=== PATIENT | male | born 1965 | race Caucasian/White ===

== ENCOUNTER 2016-03-21 18:29 | Inpatient (IN) ==
[2016-03-21] MEDS ORDERED: Naloxone 0.4 MG/ML INJ IVP PRN (21:22)
[2016-03-21] MEDS ORDERED: NON-FORMULARY MEDICATION 1 EACH EACH (Insulin Glargine [Lantus] 90 UNIT) SQ SCH (21:45)
[2016-03-21] MEDS ORDERED: INSULIN ASPART SQ SCH (21:45)
--- NOTE | 2016-03-21 21:48 | Internal Med History&Physical ---
Date of Encounter: 03/21/16 Time of Encounter: 21:43 Assessment and Plan (1) Cellulitis of left lower leg Current visit: Yes Status: Acute Patient has cellulitis, warmth and redness of the left lower extremity likely from open lesion in his foot and being diabetic and having peripheral neuropathy. He was started on Zosyn (piperacillin/tazobactam) in the ER in [facility] and we will continue every 6 hours. We will first start with a nice hot shower to cleanse his skin. We will float his heels to avoid heel breakdown. Wound clinic will be consulted. LacHytrin for his dry skin as per Dr. Lang recommendations (2) Cellulitis of left foot Current visit: Yes Status: Acute As above. Right now I do not think there is osteomyelitis (3) Diabetes mellitus due to underlying condition with diabetic neuropathic arthropathy Current visit: Yes Status: Acute Will continue his baseline long and short acting insulins and follow the blood sugars. Lab work that was not done as recommended by Dr. Acuna will be done during this hospital stay. Qualifiers: Diabetes mellitus mcc insulin use: with manager long term care use Qualified Code( s): E08.610 - Diabetes mellitus due to underlying condition with diabetic neuropathic arthropathy; Z79.4 - intermodal customer service (current) use of insulin (4) Morbid obesity with BMI of 50.0-59.9, adult Current visit: Yes Status: Acute Because of his morbid obesity it is hard to keep him clean and mobile. He is at risk for DVT and will have Lovenox for DVT prophylaxis. (5) Hypertension Current visit: Yes Status: Chronic He has a history of hypertension, in the ER he was hypotensive. He has improved with IV fluids, will follow. Qualifiers: Hypertension type: essential hypertension Qualified Code(s): I10 - Essential (primary) hypertension (6) Hyperlipidemia Current visit: Yes Status: Chronic We will check his lab work while hospitalized. Qualifiers: Hyperlipidemia type: unspecified Qualified Code(s): E78.5 - Hyperlipidemia , unspecified (7) Asthma Current visit: Yes Status: Acute He has a history of asthma remotely. He said he had a flareup and required a nebulizer treatment in the ER. We will have PRN albuterol nebulizer treatment. Qualifiers: Asthma severity: mild intermittent Asthma complication type: with acute exacerbation Qualified Code(s): J45.21 - Mild intermittent asthma with (acute ) exacerbation (8) DVT prophylaxis Current visit: Yes Status: Acute Because of his obesity, bed rest to elevate his feet, and sedentary lifestyle he is at risk for DVT. Lovenox will be started. Internal Medicine - H&P: HPI Chief complaint: My foot hurts and I have an infection Admitted From: Emergency Dept Plans for Post Hospital Care: Home History of present illness: Mr. Lopez is a 50 year old male with known history of insulin-dependent diabetes, hypertension, hyperlipidemia, peripheral neuropathy and multiple foot problems. He was seen in the office by Dr. Acuna about 10 days ago and he states things were stable at that time. He did not get his blood work done though. He said his feet were okay then. However, he said he has had a "cold" and has had sore throat and chills and perspiring especially at night time. Sometimes he has been wheezing. He said he has been without his hot water heater for a couple of weeks. He had to wear his dress socks for 3 days in a row and did not realize that he was having troubles with his foot. Then he started having throbbing in his left foot. 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 He said they had to cut socks off of his foot and made an indentation because it was so tight. He was evaluated in the emergency room in [facility], blood cultures obtaining, white blood cell count was 21,000. He was given a breathing treatment because he was wheezing. Give him a dose of Zosyn. With the type of insurance that he has, he has no coverage at the [facility] and so they requested transfer to our facility. Bed management said we could admit him. He denies a cardiac symptoms but was told that he should have an echocardiogram by the director strategic account management. He was told in the past he had asthma and had an inhaler 12 or 15 years ago, not requiring anything recently but had a breathing treatment at the ER because of wheezing. He has been seen by Dr. Lang in [place] for his lesions on his feet, callous removals, etc. Past Med Surg Social Fam HX - Past Medical History Medical history: asthma (Was treated 15 or [address] Wright with an inhaler that has had none since.), diabetes, hyperlipidemia, hypertension, other (Multiple problems with his feet, ulcerations, calluses) Psychiatric history: no psych history - Past Surgical History Surgical History: cataract (Cataract surgeries), orthopedic, other (Bilateral carpal tunnel), vasectomy, other (Cystoscopy) - Social History Smoking Status: Current some day smoker Smokeless Tobacco Status: Yes Alcohol use: none Drug use: none - Family History Brother Living Status: Still Living Hx Family Endocrine Disorder: Yes (2 brothers with diabetes) Father Living Status: Still Living Hx Family Genitourinary Disorders: Yes (Small kidneys and kidney failure problems) Mother Living Status: Cause of : Some type of cancer when the patient was 3 or 4 years old Internal Medicine - H&P: Meds Furosemide [Lasix] 80 mg PO DAILY 04/19/15 [History] GlipiZIDE [Glucotrol] 5 mg PO DAILY 04/19/15 [History] Insulin ASPART [NovoLOG] 0 unit SQ TIDWM 04/19/15 [History] Insulin Glargine [Lantus] 90 unit SQ BID 04/19/15 [History] Lisinopril-HCTZ 20-12.5 [Prinzide 20-12.5] 1 each PO DAILY 04/19/15 [History] Ammonium Lactate [Ammonium Lactate] BID 03/21/16 [History] Allergies codeine Adverse Reaction (Mild, Verified 03/21/16 22:33) Constipation - Constitutional Constitutional: chills, excessive sweating, fever(s), night sweats - EENT Eyes: no change in vision Ears: no decreased hearing, no ear discharge, no ear pain Nose, mouth and throat: sore throat, no nasal congestion - Cardiovascular Cardiovascular ROS IM: no chest pain, no claudication, no irregular heart rhythm - Respiratory Respiratory: cough, wheezing (Was treated for wheezing in the emergency room.), no chest congestion - Gastrointestinal Gastrointestinal: no abdominal pain, no constipation, no diarrhea, no melena, no nausea, no vomiting - Genitourinary Genitourinary ROS male: no difficulty urinating, no hematuria - Musculoskeletal Musculoskeletal ROS IM: no joint swelling, no muscle weakness - Integumentary Additional comments: Crack in the skin on the bottom of his left foot and superficial abrasion type exfoliation on the left calf area. - Neurological Neurological ROS: no dizziness, no focal weakness, no weakness - Psychiatric Psychiatric: no behavioral changes, no depression - Constitutional Vitals: Temp Pulse Resp BP Pulse Ox 97.7 F 110 22 98/47 96 03/21/16 20:55 03/21/16 20:55 03/21/16 20:55 03/21/16 20:55 03/21/16 20:55 General appearance: Present: mild distress, A&O X 3, morbidly obese Exam: Very dirty and odorous - Eye Eye exam: Present: EOMI, normal appearance - ENT ENT exam: Present: mucous membranes moist, TM's normal bilaterally Additional comments: Poor dentition, some missing teeth - Neck Neck exam general surgery: Absent: lymphadenopathy, tenderness, nuchal rigidity - Respiratory Respiratory exam: Present: CTAB. Absent: respiratory distress, rhonchi, wheezes - Cardiovascular Cardiovascular exam: Present: RRR, +S1, +S2, systolic murmur (2/6 systolic murmur at the outlet) - GI/Abdominal GI/Abdominal exam: Present: no peritoneal signs. Absent: pulsatile mass, rebound, tenderness Additional comments: Morbidly obese. No obvious liver or spleen enlargement, but would be almost impossible find most lesions because of his obesity. - Extremities Exam Additional comments: Lower extremities are very large bilaterally. (Tar surface shows 4 cm "crack" transfers across the distal 1st metatarsal. There is no exudate. Healing previously calloused area on the medial proximal hallux. Posterior calf shows a transverse band measuring approximately 3 cm x 10 cm of excoriated raw skin. No secondary infection or drainage noted. The skin is peeling. Right foot shows callous at the right medial hallux. No open lesion noted. Both bilateral lower extremity show hyperpigmentation, thick leather like skin with bubbled type appearance on the anterior shins. The left lower extremity is hot and tender and erythematous particularly in the lower two thirds. There are no linear streaks above that. No thigh tenderness. No inguinal lymphadenopathy noted. Both feet are anesthetic to touch sensation. Capillary refill appears to be intact. - Neurological Exam Neurological exam: Present: alert, CN II-XII intact, oriented X3 Additional comments: Both feet are anesthetic to light touch. - Psychiatric Psychiatric exam: Present: normal affect, normal mood - Skin Additional comments: see description in lower extremities Internal Med - H&P Results - Labs Labs: Labs obtained at [facility] ER : White blood cell count is 21,800, hemoglobin 13.4 with 82% segmented cells with the left shift and 7 bands. sodium 134 potassium 4.0 by carb 32 glucose 238 BUN 19 credit 1.15 alkaline phosphatase 180 and rest of liver functions are normal.
[2016-03-21] MEDS ORDERED: Insulin DETEMIR 100 UNIT/ML per UNIT SQ ONE (22:15)
[2016-03-22] MEDS: *HR* HYDROcodone/Acet 5/325 mg TABLET PO PRN ×5 (00:08→21:55)
[2016-03-22] MEDS: 0.9 % Sodium Chloride 1,000 ML IVC SCH ×3 (00:13→13:26)
[2016-03-22] MEDS: Piperacillin/Tazobactam 3.375 GM in D5% in Water (Mini-Bag+) 100 ML IVPB SCH ×3 (00:14→14:12)
[2016-03-22] MEDS: Albuterol 2.5 MG/3 ML NEBULIZER IH PRN ×4 (00:27→21:24)
[2016-03-22] MEDS: Ammonium Lactate 30 APPL/225 GM BOTTLE TP SCH ×3 (00:30→21:25)
[2016-03-22] MEDS ORDERED: *HR* Dextrose 50 % in Water (Syg) 50 ML SYRINGE IVP PRN (04:16)
[2016-03-22] MEDS ORDERED: D5% in Water 1,000 ML IV PRN (04:16)
[2016-03-22] MEDS ORDERED: Dextrose Gel 15 GM PO PRN ×2 (04:16)
[2016-03-22] MEDS: *HR* Enoxaparin 40 MG/0.4 ML SYRINGE SQ SCH (05:27)
[2016-03-22 05:37] LABS: Basophils % 0.2 %; Eosinophils # 0.1 K/mcL (0.0-0.6); Eosinophils % 0.2 %; Hematocrit 36.7 % (37.5-50.1); Hemoglobin 12.2 g/dL (12.9-16.9); Immature Granulocytes % 1.1 % (0-4); Lymphocytes # 0.9 K/mcL (0.6-4.6); Mean Corpuscular HGB Conc 33.2 g/dL (31.6-35.5); Mean Corpuscular Hemoglobin 29.3 pg (28.0-33.3); Mean Platelet Volume 10.4 fL (9.4-12.4); Monocytes # 1.9 K/mcL (0.0-1.3); Monocytes % 8.2 %; Neutrophils # 19.6 K/mcL (1.6-8.9); Platelet Count 271 K/mcL (140-400); Red Blood Count 4.17 M/mcL (4.19-5.50); Red Cell Distribution Width 13.9 % (11.5-14.5); Segmented Neutrophils % 86.3 %
[2016-03-22 05:39] LABS: Basophils # 0.1 K/mcL (0.0-0.2)
[2016-03-22 05:48] LABS: BUN/Creatinine Ratio 18 (6-26); Blood Urea Nitrogen 21 mg/dL (8-26); Calcium 8.6 mg/dL (8.6-10.8); Carbon Dioxide 26 mEq/L (19-29); Chloride 95 mEq/L (98-109); Chol/HDL Ratio 4.4 (0-4.9); Glucose 235 mg/dL (70-99); Osmolality,Calculated 287 (280-300); Potassium 4.1 mEq/L (3.5-4.5); Sodium 133 mEq/L (136-145); eGFR For African Americans > 60 (> 60); eGFR For Non-African Americans > 60 (> 60)
[2016-03-22] MEDS: Insulin LISPRO 300 UNITS/3 ML VIAL SQ SCH ×4 (10:18→21:24)
[2016-03-22] MEDS: Lisinopril-HCTZ 20-12.5mg TABLET PO SCH (10:20)
[2016-03-22] MEDS: Furosemide 40 MG TABLET PO SCH (10:20)
[2016-03-22] MEDS: *HR* GlipiZIDE 5 MG TABLET PO SCH (10:20)
[2016-03-22] MEDS: Insulin DETEMIR 100 UNIT/ML X5UNITS SQ SCH ×2 (10:34→21:24)
--- NOTE | 2016-03-22 15:20 | Internal Med Progress Note ---
Date of Encounter: 03/22/16 Time of Encounter: 15:15 - Assessment and plan (1) Diabetic infection of left foot Current Visit: Yes Status: Acute Assessment and plan: Overnight since he had a shower he has an obvious infection in the plantar surface of the left foot as discussed above. It is currently able to drain. Likely this abscess needs to be unroofed surgically. Currently there is drainage and a culture was obtained. I try to be in touch with Dr. Lang this weekend to formulate game plan regarding more aggressive intervention. Likely this is going to need major debridement by him and I want to make arrangements to facilitate him seeing him, but likely not available over the weekend. We will continue with the Zosyn. Blood cultures from [facility] ER are pending. White blood cell count is still 22,000, but he has been on antibiotics less than 24 hours. There is no fever. No advancement of the superficial cellulitis on the left lower extremity. At this point he will remain at bed rest. (2) Cellulitis of left lower leg Current Visit: Yes Status: Acute Assessment and plan: The cellulitis area of the left lower extremity is stable, no further advancement proximately. He continues with the Zosyn. (3) Cellulitis of left foot Current Visit: Yes Status: Acute (4) Diabetes mellitus due to underlying condition with diabetic neuropathic arthropathy Current Visit: Yes Status: Acute Assessment and plan: Minimal elevation of his blood sugars, we are continuing his chronic medication and coverage. Qualifiers: Diabetes mellitus watermelon harvesting supervisor insulin use: with watermelon harvesting supervisor use Qualified Code( s): E08.610 - Diabetes mellitus due to underlying condition with diabetic neuropathic arthropathy; Z79.4 - extermination supervisor (current) use of insulin (5) Morbid obesity with BMI of 50.0-59.9, adult Current Visit: Yes Status: Chronic (6) Hypertension Current Visit: Yes Status: Chronic Assessment and plan: His blood pressure is under adequate control now. At the ER at [facility] and early here he had some hypotension in the 90s systolic. Now in the 110 to 120 range. Will follow. Continue current meds. Qualifiers: Hypertension type: essential hypertension Qualified Code(s): I10 - Essential (primary) hypertension (7) Hyperlipidemia Current Visit: Yes Status: Chronic Qualifiers: Hyperlipidemia type: unspecified Qualified Code(s): E78.5 - Hyperlipidemia , unspecified (8) Asthma Current Visit: Yes Status: Acute Assessment and plan: He will be receiving nebulizer treatments PRN. We will try to avoid adding steroids because of his acute infection. Qualifiers: Asthma severity: mild intermittent Asthma complication type: with acute exacerbation Qualified Code(s): J45.21 - Mild intermittent asthma with (acute ) exacerbation (9) Skin ulcer of buttock, limited to breakdown of skin Current Visit: Yes Status: Acute Assessment and plan: He has skin breakdown superficially in the buttock crease area. The orange calamine and petroleum jelly cream has been applied. Will follow. The groin area shows some reddening and likely early tinea cruris and it is a damp area and we will apply nystatin powder (10) DVT prophylaxis Current Visit: Yes Status: Acute - Subjective Interval history: Patient denies any new acute symptoms. His feet are anesthetic so is not having much in the way of any pain. He still has some shortness of breath and occasional cough. He has remote history of asthma, and he thinks it has been exacerbated with his cold symptoms the past couple of weeks and also an episode where he choked on some hot sauce at [employer] that he felt closed his airway. He denies any cardiac symptoms. No G.I. symptoms. He ate breakfast well. He has been trying to stay off of his feet. Trying to elevate and float his heels. He denies any pain, but his feet are basically anesthetic anyway. - Constitutional Vitals: Temp Pulse Resp BP Pulse Ox 98.6 F 105 16 114/69 95 03/22/16 11:37 03/22/16 11:37 03/22/16 11:37 03/22/16 11:37 03/22/16 11:37 General appearance: Present: A&O X 3, morbidly obese, no acute distress - Respiratory Additional comments: Slight intermittent end expiratory wheezes scattered. No localization of crackles or rales. No respiratory distress. No orthopnea. - Cardiovascular Cardiovascular exam: Present: RRR, +S1, +S2, systolic murmur (2/6 systolic murmur) - GI/Abdominal Additional comments: Morbidly obese. No localizing tenderness. No obvious masses. No redness or skin changes. - Extremities Exam Extremities exam: Absent: calf tenderness Additional comments: Generalize redness from 6 cm from the patella and distally, warm to touch. The posterior calf area of exfoliation of skin is drying up and only slightly moist. Looks much improved today. Since he had a shower last night we are able to evaluate his feet better. Unfortunately, the left foot plantar area shows an area approximately 5 cm x 3 cm of white skin with some bruising, it feels mushy and I was able to express blood and later blood and pus mixture through a tiny spontaneous opening. Mild odor to this. The transverse crack in the skin over the 1st metatarsal area is dry and no drainage. The right foot shows the continued callus formation over the medial hallux and/or over the 5th metatarsal area from where he had the previous ulcers and these are intact. Internal Medicine: Result - Labs CBC & Chem 7: 03/22/16 05:13 03/22/16 05:13 Labs: Short CBC 03/22/16 Range/Units 05:13 WBC 22.7 H (4.3-11.1) K/mcL Hgb 12.2 L (12.9-16.9) g/dL Hct 36.7 L (37.5-50.1) % Plt Count 271 (140-400) K/mcL Neutrophils # 19.6 H (1.6-8.9) K/mcL BMP 03/22/16 05:13 Sodium 133 L Potassium 4.1 Chloride 95 L Carbon Dioxide 26 BUN 21 Creatinine 1.20 Glucose 235 H Calcium 8.6 White blood cell count is still elevated at initial baseline. Mild hyponatremia , elevated glucose in a known diabetic. Blood cultures from [facility] ER are pending. Consult Discharge Plan - Plan Referrals: Arely Acuna MD [Primary Care Provider] -
[2016-03-22] MEDS ORDERED: Nicotine 2 MG GUM BC PRN (15:50)
[2016-03-22] MEDS: Nystatin POWDER 30 GM BOTTLE TP SCH ×2 (17:31→21:25)
[2016-03-22 18:34] LABS: Creatinine,Urine 423 mg/dL; Microalbum/Creatinine Ratio,Ur 5 (0-30); Microalbumin,Urine 23 mg/L
[2016-03-23] MEDS: Piperacillin/Tazobactam 3.375 GM in D5% in Water (Mini-Bag+) 100 ML IVPB SCH ×3 (00:10→20:44)
[2016-03-23] MEDS: Albuterol 2.5 MG/3 ML NEBULIZER IH PRN ×3 (05:13→17:49)
[2016-03-23] MEDS: *HR* Enoxaparin 40 MG/0.4 ML SYRINGE SQ SCH (05:13)
[2016-03-23 05:35] LABS: Basophils # 0.1 K/mcL (0.0-0.2); Basophils % 0.3 %; Eosinophils # 0.1 K/mcL (0.0-0.6); Eosinophils % 0.4 %; Hematocrit 36.1 % (37.5-50.1); Hemoglobin 11.6 g/dL (12.9-16.9); Immature Granulocytes % 1.6 % (0-4); Lymphocytes % 4.1 %; Mean Corpuscular HGB Conc 32.1 g/dL (31.6-35.5); Mean Corpuscular Hemoglobin 28.6 pg (28.0-33.3); Mean Corpuscular Volume 89.1 fL (83.0-100.0); Mean Platelet Volume 10.4 fL (9.4-12.4); Monocytes # 1.9 K/mcL (0.0-1.3); Monocytes % 7.9 %; Neutrophils # 20.8 K/mcL (1.6-8.9); Platelet Count 281 K/mcL (140-400); Red Blood Count 4.05 M/mcL (4.19-5.50); Red Cell Distribution Width 13.9 % (11.5-14.5); Segmented Neutrophils % 85.7 %
[2016-03-23 05:45] LABS: Potassium 4.3 mEq/L (3.5-4.5)
[2016-03-23] MEDS: *HR* HYDROcodone/Acet 5/325 mg TABLET PO PRN ×4 (06:23→20:43)
[2016-03-23] MEDS: Furosemide 40 MG TABLET PO SCH (08:03)
[2016-03-23] MEDS: Lisinopril-HCTZ 20-12.5mg TABLET PO SCH (08:04)
[2016-03-23] MEDS: Insulin DETEMIR 100 UNIT/ML X5UNITS SQ SCH ×2 (08:04→20:44)
[2016-03-23] MEDS: *HR* GlipiZIDE 5 MG TABLET PO SCH (08:04)
[2016-03-23] MEDS: Ammonium Lactate 30 APPL/225 GM BOTTLE TP SCH ×2 (08:05→20:44)
[2016-03-23] MEDS: Insulin LISPRO 300 UNITS/3 ML VIAL SQ SCH ×4 (08:05→20:46)
[2016-03-23] MEDS: Nystatin POWDER 30 GM BOTTLE TP SCH ×3 (08:06→20:46)
--- NOTE | 2016-03-23 13:16 | Internal Med Progress Note ---
Date of Encounter: 03/23/16 Time of Encounter: 12:42 - Assessment and plan (1) Diabetic infection of left foot Current Visit: Yes Status: Acute Assessment and plan: He still has serosanguinous drainage out of a small defect on the foot. No pus was expressed today. I am sure this is going to need surgical intervention when Dr. Lang is available. Because his white blood cell count has still not dropped, and is up to 24,000, I will add vancomycin to the Zosyn. Culture is pending. Blood culture from [facility] is no growth on preliminary reading. Has no fever. I heard back from utilization review/[place] and the patient will be admitted. (2) Cellulitis of left lower leg Current Visit: Yes Status: Acute Assessment and plan: The cellulitis appears to be stable without extension more proximally. It is still warm. The skin breakdown on the calf is now drying up and improved. Discussion regarding antibiotics as above (3) Cellulitis of left foot Current Visit: Yes Status: Acute (4) Diabetes mellitus due to underlying condition with diabetic neuropathic arthropathy Current Visit: Yes Status: Acute Assessment and plan: Sugars are mildly elevated intermittently. His glycohemoglobin came back as 9.0 %. He is on his usual insulin dosing plus coverage. Qualifiers: Diabetes mellitus long term care phlebotomist insulin use: with long term care phlebotomist use Qualified Code( s): E08.610 - Diabetes mellitus due to underlying condition with diabetic neuropathic arthropathy; Z79.4 - terminal system operator (current) use of insulin (5) Morbid obesity with BMI of 50.0-59.9, adult Current Visit: Yes Status: Chronic (6) Hypertension Current Visit: Yes Status: Chronic Assessment and plan: His hypertension is well controlled, and improved from the 90s systolic since admission Qualifiers: Hypertension type: essential hypertension Qualified Code(s): I10 - Essential (primary) hypertension (7) Hyperlipidemia Current Visit: Yes Status: Chronic Qualifiers: Hyperlipidemia type: unspecified Qualified Code(s): E78.5 - Hyperlipidemia , unspecified (8) Asthma Current Visit: Yes Status: Acute Assessment and plan: He is using nebulizer treatment for his wheezing and coughing. I plan a chest x -ray today. Qualifiers: Asthma severity: mild intermittent Asthma complication type: with acute exacerbation Qualified Code(s): J45.21 - Mild intermittent asthma with (acute ) exacerbation (9) Hypoxia Current Visit: Yes Status: Acute Assessment and plan: When he is in a deep sleep is saturations are in the 80s. They applied oxygen and his saturations are in the 90s. I suspect he may have sleep apnea or because of his morbid obesity it may be a Pickwickian issue. (10) Acute kidney injury Current Visit: Yes Status: Acute Assessment and plan: His creatinine has increased from 1.21 on admission to 1.88. He is eating and drinking well. He continues with his Lasix, but this may need to be decreased. Follow-up creatinine order for the morning before his Lasix dose. He had received IV fluids on admission, the IV was discontinued yesterday as he was drinking well. (11) Skin ulcer of buttock, limited to breakdown of skin Current Visit: Yes Status: Acute Assessment and plan: I did not reevaluate the breakdown in the buttock crease today, the nurses are using the orange colored cream. (12) DVT prophylaxis Current Visit: Yes Status: Acute - Subjective Interval history: Patient states that he has been sleeping well. The nurses state that he naps a lot during the day and is hard to arouse. His saturations were in the 80s so they placed 2 L per nasal cannula and he is having saturations in the 90s now. He denies a history of sleep apnea. As large as he is he may have Pickwickian issues as well. He has been wheezing and he states he has a history of asthma in the past, but has not been on medications for quite a while. The nebulizer treatments have been helpful. I was told by the ER physician in [place] that his chest x-ray was negative for infiltrate. He denies any fever or chills. He denies any cardiac type chest pain. Denies any G.I. symptoms and has been eating and drinking well. He has had some pain in the foot and requested pain medication last night, typically he does not have sensation there. - Constitutional Vitals: Temp Pulse Resp BP Pulse Ox 98.8 F 102 18 101/62 92 L 03/23/16 12:11 03/23/16 12:11 03/23/16 12:11 03/23/16 12:11 03/23/16 12:11 General appearance: Present: A&O X 3, morbidly obese, no acute distress - Respiratory Additional comments: Occasional end expiratory wheezes. Deep breath triggers a cough. No localization of crackles. No respiratory distress - Cardiovascular Cardiovascular exam: Present: RRR, +S1, +S2, systolic murmur (1 to 2/6 systolic murmur) - GI/Abdominal GI/Abdominal exam: Absent: tenderness Additional comments: Patient is morbidly obese which makes exam difficult - Extremities Exam Additional comments: The left lower extremity still has the warmth and generalized erythema without any new proximal extension. The excoriated area on his calf seems to be drying up now. The plantar surface of his foot still has the transverse crack in the skin without drainage over the distal 1st metatarsal area. He is having serosanguinous drainage out of a small opening over the extensive abscess area which measures 4 cm x 7 cm. The area is still soft and mushy and partially bruised. No other skin breakdown noted on either foot. - Skin Additional comments: See extremity exam above Internal Medicine: Result - Labs CBC & Chem 7: 03/23/16 05:05 03/23/16 05:05 Labs: Short CBC 03/23/16 Range/Units 05:05 WBC 24.3 H (4.3-11.1) K/mcL Hgb 11.6 L (12.9-16.9) g/dL Hct 36.1 L (37.5-50.1) % Plt Count 281 (140-400) K/mcL Neutrophils # 20.8 H (1.6-8.9) K/mcL BMP 03/23/16 05:05 Sodium 133 L Potassium 4.3 Chloride 94 L Carbon Dioxide 27 BUN 36 H D Creatinine 1.88 H D Glucose 124 H Calcium 9.0 White blood cell count is still elevated. His creatinine has elevated to 1.88 today. - Diagnostic Studies Chest x-ray Additional comments: Chest x-ray procedure and report to be done Consult Discharge Plan - Plan Referrals: Arely Acuna MD [Primary Care Provider] -
[2016-03-23] MEDS ORDERED: Vancomycin 1,000 MG in D5% in Water 250 ML IVPB ONE ×2 (14:30→16:00)
[2016-03-23] MEDS ORDERED: Vancomycin 1 EACH in D5% in Water 250 ML IVPB SCH (15:00)
[2016-03-24] MEDS: Piperacillin/Tazobactam 3.375 GM in D5% in Water (Mini-Bag+) 100 ML IVPB SCH ×2 (00:46→08:39)
[2016-03-24] MEDS: *HR* HYDROcodone/Acet 5/325 mg TABLET PO PRN ×3 (02:37→12:30)
[2016-03-24] MEDS ORDERED: Vancomycin 2,000 MG in D5% in Water 500 ML IVPB SCH (03:00)
[2016-03-24] MEDS: *HR* Enoxaparin 40 MG/0.4 ML SYRINGE SQ SCH (05:37)
[2016-03-24 06:30] LABS: Basophils # 0.1 K/mcL (0.0-0.2); Basophils % 0.3 %; Eosinophils # 0.1 K/mcL (0.0-0.6); Eosinophils % 0.6 %; Hematocrit 34.4 % (37.5-50.1); Hemoglobin 11.2 g/dL (12.9-16.9); Immature Granulocytes % 1.7 % (0-4); Lymphocytes # 0.7 K/mcL (0.6-4.6); Lymphocytes % 3.5 %; Mean Corpuscular HGB Conc 32.6 g/dL (31.6-35.5); Mean Corpuscular Hemoglobin 28.8 pg (28.0-33.3); Mean Corpuscular Volume 88.4 fL (83.0-100.0); Mean Platelet Volume 10.3 fL (9.4-12.4); Monocytes # 1.4 K/mcL (0.0-1.3); Monocytes % 7.1 %; Platelet Count 298 K/mcL (140-400); Red Blood Count 3.89 M/mcL (4.19-5.50); Red Cell Distribution Width 14.1 % (11.5-14.5); Segmented Neutrophils % 86.8 %
[2016-03-24 06:31] LABS: Neutrophils # 16.7 K/mcL (1.6-8.9)
[2016-03-24 06:33] LABS: INR 1.3; Prothrombin Time 14.2 Seconds (9.4-12.1)
[2016-03-24 06:36] LABS: Activated Partial Thrombo Time 29.8 Seconds (26.0-36.0)
[2016-03-24 06:50] LABS: Calcium 8.9 mg/dL (8.6-10.8); Potassium 4.4 mEq/L (3.5-4.5)
[2016-03-24] MEDS: Insulin LISPRO 300 UNITS/3 ML VIAL SQ SCH ×2 (08:38→12:19)
[2016-03-24] MEDS: Furosemide 40 MG TABLET PO SCH (08:39)
[2016-03-24] MEDS: *HR* GlipiZIDE 5 MG TABLET PO SCH (08:39)
[2016-03-24] MEDS: Lisinopril-HCTZ 20-12.5mg TABLET PO SCH (08:39)
[2016-03-24] MEDS: Nystatin POWDER 30 GM BOTTLE TP SCH (09:03)
[2016-03-24] MEDS: Insulin DETEMIR 100 UNIT/ML X5UNITS SQ SCH (09:03)
[2016-03-24] MEDS: Ammonium Lactate 30 APPL/225 GM BOTTLE TP SCH (09:03)
--- NOTE | 2016-03-24 09:21 | Discharge Summary ---
Date of Encounter: 03/24/16 Time of Encounter: 08:20 - Discharge Diagnosis (1) Diabetic infection of left foot Priority: Primary Status: Acute Comments: Spoke with Dr. Camacho this morning and he is willing to take him in transfer. 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 He really needs to see a specialist to have a foot debrided. There is a lot of copious purulent material coming from it this morning the whole bottom of the foot around the metatarsal area is fluctuant. We will continue his Vanco ) Pip/ and tazobactam. His original blood cultures are at [facility]. No growth so far. His foot culture is growing gram-positive cocci . His white count is still persistently elevated (2) Cellulitis of left foot Priority: Secondary Status: Acute Comments: The antibiotics he is being transferred for mulga for further wound care (3) Acute kidney injury Priority: Secondary Status: Acute Comments: Due to the antibiotics and infection (4) Asthma Priority: Secondary Status: Acute Comments: He does have some wheezes this morning he is getting nebulizer treatments Qualifiers: Asthma severity: mild intermittent Asthma complication type: with acute exacerbation Qualified Code(s): J45.21 - Mild intermittent asthma with (acute ) exacerbation (5) DVT prophylaxis Priority: Secondary Status: Acute (6) 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 Globin A1c is definitely elevated and not in the controlled range. 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 arthropathy; Z79.4 - rodent exterminator (current) use of insulin (7) Skin ulcer of buttock, limited to breakdown of skin Priority: Secondary Status: Acute (8) Hyperlipidemia Priority: Secondary Status: Chronic Qualifiers: Hyperlipidemia type: mixed hyperlipidemia Qualified Code(s): E78.2 - Mixed hyperlipidemia (9) Hypertension Priority: Secondary Status: Chronic Comments: His home medication he did get a little low in the night is back up to 1:30 systolic now Qualifiers: Hypertension type: essential hypertension Qualified Code(s): I10 - Essential (primary) hypertension (10) Morbid obesity with BMI of 50.0-59.9, adult Priority: Secondary Status: Chronic Comments: It definitely complicates this diabetes blood pressure - Discharge Medications Home Medications: Furosemide [Lasix] 80 mg PO DAILY 04/19/15 [History] GlipiZIDE [Glucotrol] 5 mg PO DAILY 04/19/15 [History] Insulin ASPART [NovoLOG] 0 unit SQ TIDWM 04/19/15 [History] Insulin Glargine [Lantus] 90 unit SQ BID 04/19/15 [History] Lisinopril-HCTZ 20-12.5 [Prinzide 20-12.5] 1 each PO DAILY 04/19/15 [History] Ammonium Lactate BID 03/21/16 [History] Albuterol Neb [Proventil Neb] 2.5 mg IH [id number] PRN #0 inhsol 03/24/16 [Rx] Ammonium Lactate [Amlactin] 1 appl TP BID bottle 03/24/16 [Rx] Enoxaparin [Lovenox] 40 mg SQ 0700 syringe 03/24/16 [Rx] HYDROcodone/Acet 5/325 mg [Alden 5-325 mg] 1 tab PO Q4HR PRN #0 tablet 03/24/16 [Rx] Nicotine Gum [Nicorette gum] 2 mg BC Q2HWA PRN #0 gum 03/24/16 [Rx] Nystatin POWDER [Nystop] 1 appl TP TID bottle 03/24/16 [Rx] Piperacillin/Tazobactam [Zosyn] 3.375 gm IVPB Q8HR vial 03/24/16 [Rx] Vancomycin [Vancocin] 1 each IVPB RPHPROT vial 03/24/16 [Rx] Vancomycin [Vancocin] 1,000 mg IVPB ONCE vial 03/24/16 [Rx] Vancomycin [Vancocin] 1,000 mg IVPB ONCE vial 03/24/16 [Rx] Vancomycin [Vancocin] 2,000 mg IVPB Q24H vial 03/24/16 [Rx] Allergies/Adverse Reactions: Allergies codeine Adverse Reaction (Mild, Verified 03/21/16 22:33) Constipation Date of admission: 03/23/16 14:13 Primary care physician: Arely Acuna, Consults: 03/21/16 21:29 Consult to Wound Care [CONS] Routine Reason for Consult: cellulitis, foot lesion Call Completed: No - Patient Status Disposition: Transfer Other Overall status at discharge: patient is not back to baseline - Discharge Instructions Instructions: Asthma (DC), Cellulitis (DC), Diabetes Mellitus Type 2 in Adults (DC), Chronic Hypertension (DC) Follow Up With: Arely Acuna MD [Primary Care Provider] - - Diet and Activity Activity: as per physical therapy Diet: diabetic diet, low fat, low cholesterol, low salt diet Interval History: He presented as a transfer from [facility]. His insurance did not cover [facility] and he was transferred here for left lower extremity cellulitis. He was put on. Pip/tazobactam. His original blood cultures at [facility] so far no growth he had a wound on his left foot that was draining purulent material was cultured gram-positive cocci grew out. Vanco was added. WBC has been 19-22,000. He really needs further wound debridement and care for this leg I spoke with Dr.Duku Crowder who agreed to accept him as transfer. He will be transferred there today Dr. chloe dutton electronic resources librarian. He has had elevated creatinine likely due to the vancomycin he was on Lasix for lower extremity edema chronically that has been held hoping to help with the acute renal injury. His blood pressure did get a little low in the [place] back up to 130 systolic his lasix is being held. Diabetes is poorly controlled as an outpatient likely due to diet and medication noncompliance. His sugars have been better here while he is diet controlled and getting consistent insulin. He was also wheezing all he was here and he was given nebulizer treatments for this. He does not progress to the point where he needs steroids because of wound. Hospital course: Mr. Lopez is a 50 year old male - Time Spent with Patient Total time spent providing and/or coordinating discharge services: - Constitutional Vitals: Temp Pulse Resp BP Pulse Ox 98.5 F 52 16 131/64 93 L 03/24/16 07:54 03/24/16 07:54 03/24/16 07:54 03/24/16 07:54 03/24/16 07:54 General appearance: Present: A&O X 3, morbidly obese, no acute distress - Head Head exam: Present: atraumatic, normocephalic - Neck Neck exam general surgery: Present: trachea midline - Respiratory Respiratory exam: Present: wheezes - Cardiovascular Cardiovascular exam: Present: RRR, +S1, +S2 - GI/Abdominal GI/Abdominal exam: Present: normal bowel sounds, soft (exam limited by body habitus), no peritoneal signs. Absent: guarding, rebound, tenderness - Extremities Exam Extremities exam: Present: pedal edema (bilateral, left foot with abscess with purulent d/c large amount. over the whole metatarsal area, erythema of the entire lower left left leg) - Skin Skin exam: Present: dry, warm
[2016-03-24 12:01] VITALS: BP 102/68
== END 2016-03-24 12:35 | disposition other institution (70) | DRG 380 ==
LOC: INPGRE
PROVIDERS: ADMIT Family Medicine; ATTEND Family Medicine